=== PATIENT | female | born 1960 | race Hispanic/Latino ===

== ENCOUNTER 2020-01-30 10:02 | Outpatient (CLI) | payer OTHER ==
--- NOTE | 2020-01-30 11:07 | Ultrasound Report ---
EXAMINATION: Bilateral Limited Breast Ultrasound, 01/30/2020 INDICATION: Bilateral breast nodules on screening mammography. COMPARISON: Bilateral mammography 01/10/20. FINDINGS: Targeted ultrasound evaluation was performed of the area of interest. RIGHT: There is a 6.2 mm ovoid hypoechoic nodule at the 10:00 position 8 cm from the nipple at the si te of the mammographically detected nodule. The lesion is wider than tall. No posterior features are seen. The lesion demonstrates mild internal complexity with a mildly thickened wall. The lesion has s lightly irregular/microlobulated margins. There is a 4.7 mm ovoid complicated cyst at the 10:00 position 7 cm from the nipple and there is a 4. 5 mm ovoid complicated cyst at the 10:00 position 3 cm from the nipple. There is moderate benign-appe aring ductal ectasia of the 10:00 position in the subareolar region. LEFT: There is a 1.8 cm ovoid simple cyst at the 1:00 position 4 cm from the nipple which corresponds to the site of the mammographically detected nodule. There is also an adjacent 11 mm simple cyst at that site. There is mild benign-appearing ductal ectasia in the subareolar region at the 1:00 positio n.. IMPRESSION: 1. 6.2 mm complex cystic nodule at the 10:00 position in the right breast corresponds to the mammogra phic abnormality. The appearance is mildly suspicious and biopsy/aspiration is recommended. 2. 1.8 cm simple cyst at the 1:00 position in the left breast corresponds to the mammographic abnorma lity. Follow up recommendation: Surgical consult BI-RADS Category 4: Suspicious for Malignancy. BI-RADS Category 4B-intermediate suspicion for malign aguilar. Signer Name: Ger Ren MD Signed: 01/30/2020 11:03 AM Workstation Name: [email or web address]
== END 2020-01-30 10:03 | disposition home or self-care (01) ==
LOC: SPVWC 10:02
PROVIDERS: ATTEND Surgery
DX: N60.01 Solitary cyst of right breast (principal); N60.02 Solitary cyst of left breast; N63.11 Unspecified lump in the right breast, upper outer quadrant

== ENCOUNTER 2020-02-07 10:36 | Outpatient (CLI) | payer OTHER ==
--- NOTE | 2020-02-07 12:18 | Mammography Report ---
DIGITAL RIGHT DIAGNOSTIC MAMMOGRAM WITH CAD, WITHOUT TOMOSYNTHESIS 02/07/2020 INDICATION: Post ultrasound-guided biopsy TECHNIQUE: Digital right mammographic imaging was performed. This examination was interpreted with the benefit of Computer-aided Detection analysis. COMPARISON: Screening mammogram 10/10/2019 Breast Density: The breasts are heterogeneously dense, which may obscure small masses. FINDINGS: The small density seen in the far posterior outer right breast on prior mammogram is no naif víctor seen. Cavity and clip are at that site. IMPRESSION: Ultrasound-guided biopsy has resolved the previous mammographic density in the posterior outer right breast as above Follow up recommendation: Per biopsy results Post biopsy imaging. A "normal" or negative report should not discourage follow up or biopsy of a clinically significant f inding. A written summary of these findings will be mailed to the patient. The patient will be entered into a mammography reporting system which will generate a reminder letter for the patient's next appointmen t at the appropriate interval. According to the [employer], yearly mammograms are recommended starting at age 40 and continuing as long as a woman is in good health. Breast MRI is recommended for women with an nilson roximately 20-25% or greater lifetime risk of breast cancer, including women with a strong family his tory of breast or ovarian cancer and women who have been treated for Hodgkin's disease. Signer Name: Pete Florian MD Signed: 02/07/2020 12:14 PM Workstation Name: [id number]
--- NOTE | 2020-02-07 12:20 | Ultrasound Report ---
ULTRASOUND-GUIDED RIGHT BREAST VACUUM-ASSISTED BIOPSY INDICATION: Complex cyst at 10:00 COMPARISON: Right breast ultrasound 01/30/2020, screening mammogram 01/25/2020 CONSENT: Procedure was discussed at length in advance with the patient. Possible risks and benefits w ere discussed including the possibility of bleeding. Postbiopsy care was discussed. Opportunity for q uestions was provided. Patient is not on anticoagulant therapy and reports no pertinent allergies. PROCEDURE: Timeout was performed. The complex cyst at 10:00 with wall thickening was targeted sonogra phically. Using aseptic technique and under local anesthesia, with real-time sonographic guidance, th e area of interest was biopsied. Multiple specimens were obtained with a 13-gauge mammotome vacuum as sisted device and sent to pathology for analysis. The cyst collapsed immediately upon obtaining the f irst specimen with material drawn into the device at that time. Further biopsies were then obtained o f that region. A metallic clip was placed at the end of the procedure. Site was secured and the patie nt was sent for post biopsy mammogram. Patient tolerated the procedure well and left the department i n good condition. IMPRESSION: Successful ultrasound-guided right breast biopsy Signer Name: Pete Florian MD Signed: 02/07/2020 12:16 PM Workstation Name: [id number]
== END 2020-02-07 10:37 | disposition home or self-care (01) ==
LOC: SPVWC 10:36
PROVIDERS: ATTEND Surgery
DX: N63.11 Unspecified lump in the right breast, upper outer quadrant (principal); R92.0 Mammographic microcalcification found on diagnostic imaging of breast; N60.11 Diffuse cystic mastopathy of right breast; N64.89 Other specified disorders of breast; N60.01 Solitary cyst of right breast; R92.8 Other abnormal and inconclusive findings on diagnostic imaging of breast
CPT/HCPCS: 88305